=== PATIENT | female | born 1990 | race African-American/Black ===

== ENCOUNTER 2018-03-03 11:42 | Inpatient (IN) | payer MEDICAID, OTHER ==
[2018-03-03] MEDS ORDERED: Lidocaine 1% 50 ML MDV INJECT PRN (12:22)
[2018-03-03] MEDS ORDERED: Water For Irrigation,Sterile 1,000 ML Container IRR PRN (12:22)
[2018-03-03] MEDS ORDERED: Methylergonovine 0.2 MG/1 ML Amp IM PRN (12:22)
[2018-03-03] MEDS ORDERED: Sodium Chloride 0.9% 2.5 ML Syringe FLUSH PRN (12:22)
[2018-03-03] MEDS ORDERED: Tranexamic Acid 1,000 MG in Sodium Chloride 0.9% 100 ML IV PRN (12:22)
[2018-03-03] MEDS ORDERED: Carboprost Tromethamine 250 MCG/1 ML Amp IM PRN (12:22)
[2018-03-03] MEDS ORDERED: Misoprostol 200 MCG Tab PO PRN (12:22)
[2018-03-03] MEDS ORDERED: Sodium Chloride 0.9% 10 ML Syringe FLUSH PRN (12:22)
[2018-03-03] MEDS ORDERED: Lactated Ringers 1,000 ML IV SCH (12:30)
[2018-03-03] MEDS ORDERED: Oxytocin/0.9 % Sodium Chloride 30 UNIT/500 ML BAG IV SCH ×2 (12:30→12:45)
[2018-03-03] MEDS ORDERED: Terbutaline 1 MG/ML SDV SUBCUT PRN (12:33)
[2018-03-03] MEDS ORDERED: Misoprostol 25 MCG (1/4 of 100 MCG) Tab PO PRN (13:00)
[2018-03-03] MEDS ORDERED: Ampicillin 2 GM in Sodium Chloride 0.9% 100 ML IV ONE ×2 (13:00→17:30)
[2018-03-03] MEDS ORDERED: Misoprostol 25 MCG (1/4 of 100 MCG) Tab VAG PRN (13:00)
--- NOTE | 2018-03-03 15:25 | PCM.LDHP ---
L&D History of Present Illness - General Date of Service: 03/03/18 Admit Problem/Dx: Patient Status Order with Admit Dx/Problem 03/03/18 12:23 Patient Status [ADT] Routine Admission Diagnosis/Problem Admission Diagnosis/Problem - planned 03/03/18 16:48 27yo EDC 03/09/2018 39 1/7wks, A+, RI, GBS pos. IOL for term/Elective Source of Information: Patient History Limitations: Reports: No Limitations - History of Present Illness Improves with: Reports: None Worsens with: Reports: None Associated Symptoms: Reports: N - Related Data Allergies/Adverse Reactions: Allergies Allergy/AdvReac Type Severity Reaction Status Date / Time No Known Allergies Allergy Verified 03/03/18 15:38 Home Medications: Home Meds . [No Known Home Meds] 03/03/18 [History] H&P Review of Systems - Review of Systems: Review Of Systems: See Below General: Reports: No Symptoms HEENT: Reports: No Symptoms Pulmonary: Reports: No Symptoms Cardiovascular: Reports: No Symptoms Gastrointestinal: Reports: No Symptoms Genitourinary: Reports: No Symptoms Musculoskeletal: Reports: No Symptoms Skin: Reports: No Symptoms Psychiatric: Reports: No Symptoms Neurological: Reports: No Symptoms Hematologic/Lymphatic: Reports: No Symptoms Immunologic: Reports: No Symptoms L&D Exam - Exam Exam: See Below - OB Specific Contraction Intensity: Mild Movement: Active Heart Tones: Present Heart Rate (FHR) Variability: Moderate (6-25 bmp) Presentation: Vertex Estimated Weight: 3300 - Soni Score Soni Score Cervix Position: Posterior Soni Score Consistency: Medium Soni Score Effacement: 51-70% Soni Score Dilation: 1-2 cm Soni Score 's Station: -2 Soni Score Total: 5 - Exam General: Alert, Oriented, Cooperative HEENT: Hearing Intact Lungs: Clear to Auscultation, Normal Respiratory Effort Cardiovascular: Regular Rate, Regular Rhythm, Normal S1, Normal S2 GI/Abdominal Exam: Soft, Non-Tender Rectal Exam: Deferred Extremities: Normal Inspection, Normal Range of Motion, Non-Tender, No Pedal Edema, Normal Capillary Refill Skin: Warm, Dry, Intact Neurological: Cranial Nerves Intact, Reflexes Equal Bilateral, Strength Equal Bilateral, Normal Gait, Normal Speech, Normal Tone, Sensation Intact Psychiatric: Alert, Normal Affect, Normal Mood - Patient Data Lab Results Last 24 hrs: Laboratory Results - last 24 hr 03/03/18 03/03/18 Range/Units 13:33 13:33 WBC 7.20 (4.0-11.0) K/uL RBC 3.92 L (4.30-5.90) M/uL Hgb 11.2 L (12.0-16.0) g/dL Hct 32.9 L (36.0-46.0) % MCV 83.9 (80.0-98.0) fL MCH 28.6 (27.0-32.0) pg MCHC 34.0 (31.0-37.0) g/dL RDW Std Deviation 40.6 (28.0-62.0) fl RDW Coeff of Irma 14 (11.0-15.0) % Plt Count 177 (150-400) K/uL MPV 11.80 (7.40-12.00) fL Nucleated RBC % 0.0 /100WBC Nucleated RBCs # 0 K/uL Blood Type A POSITIVE Antibody Screen NEGATIVE Result Diagrams: 03/03/18 13:33 - Problem List (1) Supervision of normal IUP (intrauterine ) in primigravida SNOMED Code(s): 31301720, 931650441, 963626052, 804479532 ICD Code: Z34.00 - ENCNTR FOR SUPRVSN OF NORMAL FIRST , UNSP TRIMESTER Status: Acute Current Visit: Yes Qualifiers: Trimester: third trimester Qualified Code(s): Z34.03 - Encounter for supervision of normal first , third trimester Problem List Initiated/Reviewed/Updated: Yes Orders Last 24hrs: Active Orders 24 hr Category Date Time Status Patient Status [ADT] Routine ADT 03/03/18 12:23 Active Bedrest Bathroom Privileges [RC] ASDIRECTED Care 03/03/18 12:33 Active Communication Order [RC] ASDIRECTED Care 03/03/18 12:33 Active Communication Order [RC] ASDIRECTED Care 03/03/18 12:33 Active Communication Order [RC] ASDIRECTED Care 03/03/18 12:33 Active Heart Tones [RC] CONTINUOUS Care 03/03/18 12:23 Active Non Stress Test [RC] PER UNIT ROUTINE Care 03/03/18 12:23 Active May Shower [RC] ASDIRECTED Care 03/03/18 12:23 Active Notify Provider [RC] PRN Care 03/03/18 12:23 Active Notify Provider [RC] PRN Care 03/03/18 12:33 Active Notify Provider [RC] PRN Care 03/03/18 12:33 Active Notify Provider [RC] STAT Care 03/03/18 12:33 Active Oxygen Therapy [RC] ASDIRECTED Care 03/03/18 12:33 Active Up ad Corinne [RC] ASDIRECTED Care 03/03/18 12:23 Active Vaginal Exam [RC] PRN Care 03/03/18 12:23 Active Vaginal Exam [RC] PRN Care 03/03/18 12:33 Active Vital Signs [RC] PER UNIT ROUTINE Care 03/03/18 12:23 Active Vital Signs [RC] PER UNIT ROUTINE Care 03/03/18 12:33 Active Ampicillin 1 gm Med 03/03/18 17:00 Active Sodium Chloride 0.9% [Normal Saline] 50 ml IV Q4H Carboprost Tromethamine [Hemabate DS] Med 03/03/18 12:22 Active 250 mcg IM ASDIRECTED PRN Lactated Ringers [Ringers, Lactated] 1,000 ml Med 03/03/18 12:30 Active IV ASDIRECTED Lidocaine 1% [Xylocaine 1%] Med 03/03/18 12:22 Active 50 ml INJECT ONETIME PRN Methylergonovine [Methergine] Med 03/03/18 12:22 Active 0.2 mg IM ASDIRECTED PRN Nalbuphine [Nubain] Med 03/03/18 12:22 Active 10 mg IVPUSH Q1H PRN Oxytocin/0.9 % Sodium Chloride [Oxytocin 30 Unit/500 ML Med 03/03/18 12:30 Active -NS] 30 unit in 500 ml IV TITRATE Oxytocin/0.9 % Sodium Chloride [Oxytocin 30 Unit/500 ML Med 03/03/18 12:45 Active -NS] 30 unit in 500 ml IV TITRATE Sodium Chloride 0.9% [Saline Flush] Med 03/03/18 12:22 Active 10 ml FLUSH ASDIRECTED PRN Sodium Chloride 0.9% [Saline Flush] Med 03/03/18 12:22 Active 2.5 ml FLUSH ASDIRECTED PRN Terbutaline [Brethine] Med 03/03/18 12:33 Active 0.25 mg SUBCUT ASDIRECTED PRN Tranexamic Acid [Cyklokapron] 1,000 mg Med 03/03/18 12:22 Active Sodium Chloride 0.9% [Normal Saline] 100 ml IV ONETIME Water For Irrigation,Sterile [Sterile Water for Med 03/03/18 12:22 Active Irrigation] 1,000 ml IRR ASDIRECTED PRN miSOPROStol [Cytotec] Med 03/03/18 12:22 Active 200 mcg PO ONETIME PRN miSOPROStol [Cytotec] Med 03/03/18 13:00 Active 25 mcg PO Q4H PRN miSOPROStol [Cytotec] Med 03/03/18 13:00 Active 25 mcg VAG Q4H PRN Scalp Electrode [WOMSER] Per Unit Routine Oth 03/03/18 12:23 Ordered Medication Administration Instruction [OM.PC] Q3H Oth 03/03/18 12:45 Ordered Peripheral IV Insertion Adult [OM.PC] Routine Oth 03/03/18 12:23 Ordered Resuscitation Status Routine Resus Stat 03/03/18 12:22 Ordered Medication Orders Carboprost Tromethamine (Hemabate Ds) 250 mcg IM ASDIRECTED PRN PRN Reason: Post Hemorrhage Ampicillin Sodium 1 gm/ Sodium (Chloride) 50 mls @ 100 mls/hr IV Q4H [facility] Lactated Ringer's (Ringers, Lactated) 1,000 mls @ 150 mls/hr IV ASDIRECTED [facility]ANG Oxytocin/Sodium Chloride (Oxytocin 30 Unit/500 Ml-Ns) 30 unit in 500 mls @ 250 mls/hr IV TITRATE [facility]ANG Oxytocin/Sodium Chloride (Oxytocin 30 Unit/500 Ml-Ns) 30 unit in 500 mls @ 2 mls/hr IV TITRATE [facility]ANG; Protocol Tranexamic Acid 1,000 mg/ (Sodium Chloride) 110 mls @ 660 mls/hr IV ONETIME PRN PRN Reason: Bleeding Lidocaine HCl (Xylocaine 1%) 50 ml INJECT ONETIME PRN PRN Reason: Laceration repair Methylergonovine Maleate (Methergine) 0.2 mg IM ASDIRECTED PRN PRN Reason: Post Hemorrhage Misoprostol (Cytotec) 200 mcg PO ONETIME PRN PRN Reason: Post Hemorrhage Misoprostol (Cytotec) 25 mcg VAG Q4H PRN PRN Reason: Cervical Ripening Last Admin: 03/03/18 14:10 Dose: 25 mcg Misoprostol (Cytotec) 25 mcg PO Q4H PRN PRN Reason: Cervical Ripening Last Admin: 03/03/18 14:18 Dose: 25 mcg Nalbuphine HCl (Nubain) 10 mg IVPUSH Q1H PRN PRN Reason: Pain (severe 7-10) Sodium Chloride (Saline Flush) 10 ml FLUSH ASDIRECTED PRN PRN Reason: Keep Vein Open Sodium Chloride (Saline Flush) 2.5 ml FLUSH ASDIRECTED PRN PRN Reason: Keep Vein Open Sterile Water (Sterile Water For Irrigation) 1,000 ml IRR ASDIRECTED PRN PRN Reason: delivery Terbutaline Sulfate (Brethine) 0.25 mg SUBCUT ASDIRECTED PRN PRN Reason: Tacysystole Assessment/Plan Comment:: IOL A: 27yo EDC 03/09/2018 39 1/7wks, A+, RI, GBS pos. IOL for term/Elective P: Admit, pain medication or epidural prn, anticipate . Dr Galo updated.
[2018-03-03] MEDS ORDERED: Ampicillin 1 GM in Sodium Chloride 0.9% 50 ML IV SCH ×2 (17:00→21:30)
[2018-03-03] MEDS ORDERED: Ampicillin 2 GM AdvVial IV ONE (17:26)
[2018-03-03] MEDS ORDERED: Sodium Chloride 0.9% 100 ML ONE (17:26)
[2018-03-03] MEDS ORDERED: Acetaminophen 500 MG Tab PO ONE (17:46)
[2018-03-03] MEDS ORDERED: Acetaminophen 500 MG Tab ONE (18:05)
[2018-03-03] MEDS: Nalbuphine 10 MG/1 ML Vial IVPUSH PRN ×2 (18:50→20:19)
--- NOTE | 2018-03-03 21:38 | PCM.DEL ---
L & D Note - General Info Date of Service: 03/03/18 Mother's Due Date: 03/09/18 - Delivery Note Cervical Ripening Method: Misoprostil Delivery Method: Spontaneous Vaginal Delivery-Single Delivery Mode: Spontaneous Presentation: Vertex Nuchal Cord: Present Anesthesia Type: None Anesthetic: Lidocaine (Xylocaine) 1% Plain Local Anesthetic Volume: 1cc Amniotic Fluid Description: Clear Episiotomy Type: None Laceration: 1st Degree Suture type: Vicryl Suture size: 3-0 Placenta: Intact, Spontaneous Cord: 3 Vessels Estimated Blood Loss: 100 Resuscitation Needed: No Score 1 min: 8 Score 5 min: 9 Second Stage Interventions: Reports: Pushing, Pulls Own Legs Back Induction Criteria - Induction Gestational Age >/= 39 wks: Yes Estimated Pelvis: Reports: Adequate Reassuring Monitoring Strip: Yes Absence of Tachy Systole: Yes - General Info Date of Service: 03/03/18 Admission Dx/Problem (Free Text): Patient Status Order with Admit Dx/Problem 03/03/18 12:23 Patient Status [ADT] Routine Admission Diagnosis/Problem Admission Diagnosis/Problem - planned 03/03/18 16:48 27yo EDC 03/09/2018 39 1/7wks, A+, RI, GBS pos. IOL for term/Elective Functional Status: Reports: Pain Controlled - Review of Systems General: Reports: No Symptoms HEENT: Reports: No Symptoms Pulmonary: Reports: No Symptoms Cardiovascular: Reports: No Symptoms Gastrointestinal: Reports: No Symptoms Genitourinary: Reports: No Symptoms Musculoskeletal: Reports: No Symptoms Skin: Reports: No Symptoms Neurological: Reports: No Symptoms Psychiatric: Reports: No Symptoms - Patient Data Weight - Most Recent: 84 kg Lab Results Last 24 Hours: Laboratory Results - last 24 hr 03/03/18 03/03/18 Range/Units 13:33 13:33 WBC 7.20 (4.0-11.0) K/uL RBC 3.92 L (4.30-5.90) M/uL Hgb 11.2 L (12.0-16.0) g/dL Hct 32.9 L (36.0-46.0) % MCV 83.9 (80.0-98.0) fL MCH 28.6 (27.0-32.0) pg MCHC 34.0 (31.0-37.0) g/dL RDW Std Deviation 40.6 (28.0-62.0) fl RDW Coeff of Irma 14 (11.0-15.0) % Plt Count 177 (150-400) K/uL MPV 11.80 (7.40-12.00) fL Nucleated RBC % 0.0 /100WBC Nucleated RBCs # 0 K/uL Blood Type A POSITIVE Antibody Screen NEGATIVE Med Orders - Current: Current Medications Carboprost Tromethamine (Hemabate Ds) 250 mcg IM ASDIRECTED PRN PRN Reason: Post Hemorrhage Lactated Ringer's (Ringers, Lactated) 1,000 mls @ 150 mls/hr IV ASDIRECTED HUANG Last Admin: 03/03/18 17:33 Dose: 150 mls/hr Oxytocin/Sodium Chloride (Oxytocin 30 Unit/500 Ml-Ns) 30 unit in 500 mls @ 250 mls/hr IV TITRATE HUANG Oxytocin/Sodium Chloride (Oxytocin 30 Unit/500 Ml-Ns) 30 unit in 500 mls @ 2 mls/hr IV TITRATE [facility]ANG; Protocol Tranexamic Acid 1,000 mg/ (Sodium Chloride) 110 mls @ 660 mls/hr IV ONETIME PRN PRN Reason: Bleeding Ampicillin Sodium 1 gm/ Sodium (Chloride) 50 mls @ 100 mls/hr IV Q4H HUANG Lidocaine HCl (Xylocaine 1%) 50 ml INJECT ONETIME PRN PRN Reason: Laceration repair Methylergonovine Maleate (Methergine) 0.2 mg IM ASDIRECTED PRN PRN Reason: Post Hemorrhage Misoprostol (Cytotec) 200 mcg PO ONETIME PRN PRN Reason: Post Hemorrhage Misoprostol (Cytotec) 25 mcg VAG Q4H PRN PRN Reason: Cervical Ripening Last Admin: 03/03/18 14:10 Dose: 25 mcg Misoprostol (Cytotec) 25 mcg PO Q4H PRN PRN Reason: Cervical Ripening Last Admin: 03/03/18 14:18 Dose: 25 mcg Nalbuphine HCl (Nubain) 10 mg IVPUSH Q1H PRN PRN Reason: Pain (severe 7-10) Last Admin: 03/03/18 20:19 Dose: 10 mg Sodium Chloride (Saline Flush) 10 ml FLUSH ASDIRECTED PRN PRN Reason: Keep Vein Open Sodium Chloride (Saline Flush) 2.5 ml FLUSH ASDIRECTED PRN PRN Reason: Keep Vein Open Sterile Water (Sterile Water For Irrigation) 1,000 ml IRR ASDIRECTED PRN PRN Reason: delivery Terbutaline Sulfate (Brethine) 0.25 mg SUBCUT ASDIRECTED PRN PRN Reason: Tacysystole Discontinued Medications Acetaminophen (Tylenol Extra Strength) 1,000 mg PO ONETIME ONE Stop: 03/03/18 17:47 Last Admin: 03/03/18 18:03 Dose: 1,000 mg Acetaminophen (Tylenol Extra Strength) Confirm Administered Dose 500 mg .ROUTE .STK-MED ONE Stop: 03/03/18 18:06 Last Admin: 03/03/18 19:38 Dose: Not Given Ampicillin Sodium (Ampicillin) Confirm Administered Dose 2 gm IV .STK-MED ONE Stop: 03/03/18 17:27 Last Admin: 03/03/18 17:40 Dose: Not Given Ampicillin Sodium 1 gm/ Sodium (Chloride) 50 mls @ 100 mls/hr IV Q4H HUANG Last Admin: 03/03/18 19:57 Dose: Not Given Ampicillin Sodium 2 gm/ Sodium (Chloride) 100 mls @ 200 mls/hr IV ONETIME ONE Stop: 03/03/18 13:29 Last Admin: 03/03/18 17:34 Dose: 200 mls/hr Ampicillin Sodium 2 gm/ Sodium (Chloride) 100 mls @ 200 mls/hr IV ONETIME ONE Stop: 03/03/18 17:59 Last Admin: 03/03/18 17:40 Dose: Not Given Sodium Chloride (Normal Saline) Confirm Administered Dose 100 mls @ as directed .ROUTE .STK-MED ONE Stop: 03/03/18 17:27 Last Admin: 03/03/18 17:40 Dose: Not Given - Exam General: Alert, Oriented Lungs: Normal Respiratory Effort GI/Abdominal Exam: Soft, Non-Tender, Pelvis Stable (Female) Exam: Normal External Exam, Normal Bimanual Exam, Vaginal Bleeding Back Exam: Normal Inspection, Full Range of Motion Extremities: Normal Inspection, Normal Range of Motion, Non-Tender, No Pedal Edema, Normal Capillary Refill Skin: Warm, Dry, Intact Wound/Incisions: Healing Well Neurological: No New Focal Deficit Psy/Mental Status: Alert, Normal Affect, Normal Mood - Problem List & Annotations (1) Supervision of normal IUP (intrauterine ) in primigravida SNOMED Code(s): 70090403, 429974030, 777327945, 722872817 Code(s): Z34.00 - ENCNTR FOR SUPRVSN OF NORMAL FIRST , UNSP TRIMESTER Status: Acute Current Visit: Yes Qualifiers: Trimester: third trimester Qualified Code(s): Z34.03 - Encounter for supervision of normal first , third trimester (2) (normal spontaneous vaginal delivery) SNOMED Code(s): 78962024 Code(s): O80 - ENCOUNTER FOR FULL-TERM UNCOMPLICATED DELIVERY Status: Acute Priority: High Current Visit: Yes - Problem List Review Problem List Initiated/Reviewed/Updated: Yes - My Orders Last 24 Hours: My Active Orders 03/03/18 12:22 Carboprost Tromethamine [Hemabate DS] 250 mcg IM ASDIRECTED PRN Lidocaine 1% [Xylocaine 1%] 50 ml INJECT ONETIME PRN Methylergonovine [Methergine] 0.2 mg IM ASDIRECTED PRN Nalbuphine [Nubain] 10 mg IVPUSH Q1H PRN Sodium Chloride 0.9% [Saline Flush] 10 ml FLUSH ASDIRECTED PRN Sodium Chloride 0.9% [Saline Flush] 2.5 ml FLUSH ASDIRECTED PRN Tranexamic Acid [Cyklokapron] 1,000 mg Sodium Chloride 0.9% [Normal Saline] 100 ml IV ONETIME Water For Irrigation,Sterile [Sterile Water for Irrigation] 1,000 ml IRR ASDIRECTED PRN miSOPROStol [Cytotec] 200 mcg PO ONETIME PRN Resuscitation Status Routine 03/03/18 12:23 Patient Status [ADT] Routine Heart Tones [RC] CONTINUOUS Non Stress Test [RC] PER UNIT ROUTINE May Shower [RC] ASDIRECTED Notify Provider [RC] PRN Up ad Corinne [RC] ASDIRECTED Vaginal Exam [RC] PRN Vital Signs [RC] PER UNIT ROUTINE Scalp Electrode [WOMSER] Per Unit Routine Peripheral IV Insertion Adult [OM.PC] Routine 03/03/18 12:30 Lactated Ringers [Ringers, Lactated] 1,000 ml IV ASDIRECTED Oxytocin/0.9 % Sodium Chloride [Oxytocin 30 Unit/500 ML-NS] 30 unit in 500 ml IV TITRATE 03/03/18 12:33 Bedrest Bathroom Privileges [RC] ASDIRECTED Communication Order [RC] ASDIRECTED Communication Order [RC] ASDIRECTED Communication Order [RC] ASDIRECTED Notify Provider [RC] PRN Notify Provider [RC] PRN Notify Provider [RC] STAT Oxygen Therapy [RC] ASDIRECTED Vaginal Exam [RC] PRN Vital Signs [RC] PER UNIT ROUTINE Terbutaline [Brethine] 0.25 mg SUBCUT ASDIRECTED PRN 03/03/18 12:45 Oxytocin/0.9 % Sodium Chloride [Oxytocin 30 Unit/500 ML-NS] 30 unit in 500 ml IV TITRATE Medication Administration Instruction [OM.PC] Q3H 03/03/18 13:00 miSOPROStol [Cytotec] 25 mcg PO Q4H PRN miSOPROStol [Cytotec] 25 mcg VAG Q4H PRN 03/03/18 21:30 Ampicillin 1 gm Sodium Chloride 0.9% [Normal Saline] 50 ml IV Q4H - Plan Plan:: IOL A: 27yo EDC 03/09/2018 39 1/7wks, A+, RI, GBS pos. IOL for term/Elective P: Admit, pain medication or epidural prn, anticipate . Dr Galo updated. Delivery A: of viable female, APGARS 8/9, Wt: 6#15oz, 1st degree lac with repair, EBL 100cc, Mother and baby left in stable condition for recovery. P: Routine pp plan of care
[2018-03-03] MEDS ORDERED: oxyCODONE 5 MG Tab PO PRN (21:39)
[2018-03-03] MEDS ORDERED: Ibuprofen 400 MG Tab PO PRN (21:39)
[2018-03-03] MEDS ORDERED: Bisacodyl 10 MG Supp RECTAL PRN (21:39)
[2018-03-03] MEDS ORDERED: Lanolin 100% Cream 7 GM Tube TOP PRN (21:39)
[2018-03-03] MEDS ORDERED: Acetaminophen 500 MG Tab PO PRN ×2 (21:39)
[2018-03-03] MEDS ORDERED: Benzocaine/Menthol 20%-0.5% Spray 78 GM Cannister TOP PRN (21:39)
[2018-03-03] MEDS ORDERED: Docusate Sodium 100 MG Cap PO PRN (21:39)
[2018-03-03] MEDS ORDERED: Witch Hazel Medicated Pads 40/Jar TOP PRN (21:39)
[2018-03-03] MEDS ORDERED: Ibuprofen 800 MG Tab ONE (21:47)
[2018-03-04] MEDS: Ibuprofen 800 MG Tab PO PRN ×2 (07:00→16:05)
--- NOTE | 2018-03-04 23:35 | PCM.PNPP ---
- General Info Date of Service: 03/04/18 Admission Dx/Problem (Free Text): Patient Status Order with Admit Dx/Problem 03/03/18 12:23 Patient Status [ADT] Routine Admission Diagnosis/Problem Admission Diagnosis/Problem - planned 03/03/18 16:48 27yo EDC 03/09/2018 39 1/7wks, A+, RI, GBS pos. IOL for term/Elective Functional Status: Reports: Pain Controlled, Tolerating Diet, Ambulating, Urinating - Review of Systems General: Reports: No Symptoms HEENT: Reports: No Symptoms Pulmonary: Reports: No Symptoms Cardiovascular: Reports: No Symptoms Gastrointestinal: Reports: No Symptoms Genitourinary: Reports: No Symptoms Musculoskeletal: Reports: No Symptoms Skin: Reports: No Symptoms Neurological: Reports: No Symptoms Psychiatric: Reports: No Symptoms - General Info Date of Service: 03/04/18 - Patient Data Vital Signs - Most Recent: Last Vital Signs Temp 36.9 C 03/04/18 20:20 Pulse 71 03/04/18 20:20 Resp 16 03/04/18 20:20 BP 116/73 03/04/18 20:20 Pulse Ox 98 03/04/18 20:20 Weight - Most Recent: 84 kg Med Orders - Current: Current Medications Acetaminophen (Tylenol Extra Strength) 500 mg PO Q4H PRN PRN Reason: Pain Acetaminophen (Tylenol Extra Strength) 1,000 mg PO Q4H PRN PRN Reason: Pain Last Admin: 03/04/18 19:03 Dose: 1,000 mg Benzocaine/Menthol (Dermoplast Pain Relief 20%-0.5% [place]) 78 gm TOP ASDIRECTED PRN PRN Reason: Perineal Comfort Measure Last Admin: 03/03/18 21:57 Dose: 1 applic Bisacodyl (Dulcolax) 10 mg RECTAL ONETIME PRN PRN Reason: Constipation Docusate Sodium (Colace) 100 mg PO BID PRN PRN Reason: Constipation Emollient Ointment (Lansinoh Hpa) 0 gm TOP ASDIRECTED PRN PRN Reason: Sore Nipples Ibuprofen (Motrin) 400 mg PO Q4H PRN PRN Reason: Pain Ibuprofen (Motrin) 800 mg PO Q6H PRN PRN Reason: Pain Last Admin: 03/04/18 16:05 Dose: 800 mg Oxycodone HCl (Oxycodone) 5 mg PO Q2H PRN PRN Reason: Pain Witch Marilee (Tucks) 1 pad TOP ASDIRECTED PRN PRN Reason: comfort care Last Admin: 03/04/18 07:05 Dose: 1 applic Discontinued Medications Acetaminophen (Tylenol Extra Strength) 1,000 mg PO ONETIME ONE Stop: 03/03/18 17:47 Last Admin: 03/03/18 18:03 Dose: 1,000 mg Acetaminophen (Tylenol Extra Strength) Confirm Administered Dose 500 mg .ROUTE .STK-MED ONE Stop: 03/03/18 18:06 Last Admin: 03/03/18 19:38 Dose: Not Given Ampicillin Sodium (Ampicillin) Confirm Administered Dose 2 gm IV .STK-MED ONE Stop: 03/03/18 17:27 Last Admin: 03/03/18 17:40 Dose: Not Given Carboprost Tromethamine (Hemabate Ds) 250 mcg IM ASDIRECTED PRN PRN Reason: Post Hemorrhage Ampicillin Sodium 1 gm/ Sodium (Chloride) 50 mls @ 100 mls/hr IV Q4H [facility] Last Admin: 03/03/18 19:57 Dose: Not Given Ampicillin Sodium 2 gm/ Sodium (Chloride) 100 mls @ 200 mls/hr IV ONETIME ONE Stop: 03/03/18 13:29 Last Admin: 03/03/18 17:34 Dose: 200 mls/hr Lactated Ringer's (Ringers, Lactated) 1,000 mls @ 150 mls/hr IV ASDIRECTED [facility] Last Admin: 03/03/18 17:33 Dose: 150 mls/hr Oxytocin/Sodium Chloride (Oxytocin 30 Unit/500 Ml-Ns) 30 unit in 500 mls @ 250 mls/hr IV TITRATE [facility] Last Admin: 03/03/18 22:03 Dose: 250 mls/hr Oxytocin/Sodium Chloride (Oxytocin 30 Unit/500 Ml-Ns) 30 unit in 500 mls @ 2 mls/hr IV TITRATE [facility]; Protocol Tranexamic Acid 1,000 mg/ (Sodium Chloride) 110 mls @ 660 mls/hr IV ONETIME PRN PRN Reason: Bleeding Ampicillin Sodium 2 gm/ Sodium (Chloride) 100 mls @ 200 mls/hr IV ONETIME ONE Stop: 03/03/18 17:59 Last Admin: 03/03/18 17:40 Dose: Not Given Ampicillin Sodium 1 gm/ Sodium (Chloride) 50 mls @ 100 mls/hr IV Q4H [facility] Last Admin: 03/04/18 19:50 Dose: Not Given Sodium Chloride (Normal Saline) Confirm Administered Dose 100 mls @ as directed .ROUTE .STK-MED ONE Stop: 03/03/18 17:27 Last Admin: 03/03/18 17:40 Dose: Not Given Ibuprofen (Motrin) Confirm Administered Dose 800 mg .ROUTE .STK-MED ONE Stop: 03/03/18 21:48 Last Admin: 03/03/18 21:56 Dose: 800 mg Lidocaine HCl (Xylocaine 1%) 50 ml INJECT ONETIME PRN PRN Reason: Laceration repair Last Admin: 03/03/18 22:01 Dose: 50 ml Methylergonovine Maleate (Methergine) 0.2 mg IM ASDIRECTED PRN PRN Reason: Post Hemorrhage Misoprostol (Cytotec) 200 mcg PO ONETIME PRN PRN Reason: Post Hemorrhage Misoprostol (Cytotec) 25 mcg VAG Q4H PRN PRN Reason: Cervical Ripening Last Admin: 03/03/18 14:10 Dose: 25 mcg Misoprostol (Cytotec) 25 mcg PO Q4H PRN PRN Reason: Cervical Ripening Last Admin: 03/03/18 14:18 Dose: 25 mcg Nalbuphine HCl (Nubain) 10 mg IVPUSH Q1H PRN PRN Reason: Pain (severe 7-10) Last Admin: 03/03/18 20:19 Dose: 10 mg Sodium Chloride (Saline Flush) 10 ml FLUSH ASDIRECTED PRN PRN Reason: Keep Vein Open Sodium Chloride (Saline Flush) 2.5 ml FLUSH ASDIRECTED PRN PRN Reason: Keep Vein Open Sterile Water (Sterile Water For Irrigation) 1,000 ml IRR ASDIRECTED PRN PRN Reason: delivery Terbutaline Sulfate (Brethine) 0.25 mg SUBCUT ASDIRECTED PRN PRN Reason: Tacysystole - Interaction Disposition, : [place] at Bedside Interaction: Holding Feeding: Breastfed ; Nursed Well Support Person: - Recovery Exam Fundal Tone: Firm Fundal Level: 1 Fingerbreadths Below Umbilicus Fundal Placement: Midline Lochia Amount: Scant Lochia Color: Rubra/Red Perineum Description: Other (see below) Other Perinuem Description: 1st degree laceration Episiotomy/Laceration: Approximated Bladder Status: Voiding - Exam General: Alert Lungs: Clear to Auscultation, Normal Respiratory Effort Cardiovascular: Regular Rate, Regular Rhythm, No Murmurs GI/Abdominal Exam: Soft, Non-Tender Extremities: Normal Inspection, Normal Range of Motion, Non-Tender, No Pedal Edema, Normal Capillary Refill Skin: Warm, Dry, Intact Wound/Incisions: Healing Well Neurological: No New Focal Deficit, Normal Speech, Normal Tone, Strength Equal Bilateral Psy/Mental Status: Alert, Normal Affect, Normal Mood - Problem List & Annotations (1) Supervision of normal IUP (intrauterine ) in primigravida SNOMED Code(s): 09298303, 698359177, 452780318, 943293584 Code(s): Z34.00 - ENCNTR FOR SUPRVSN OF NORMAL FIRST , UNSP TRIMESTER Status: Acute Current Visit: Yes Qualifiers: Trimester: third trimester Qualified Code(s): Z34.03 - Encounter for supervision of normal first , third trimester (2) (normal spontaneous vaginal delivery) SNOMED Code(s): 29298380 Code(s): O80 - ENCOUNTER FOR FULL-TERM UNCOMPLICATED DELIVERY Status: Acute Priority: High Current Visit: Yes - Problem List Review Problem List Initiated/Reviewed/Updated: Yes - My Orders Last 24 Hours: My Active Orders 03/04/18 23:11 Code Status [Resuscitation Status] Routine 03/04/18 Breakfast Regular Diet [DIET] - Plan Plan:: IOL A: 27yo EDC 03/09/2018 39 1/7wks, A+, RI, GBS pos. IOL for term/Elective P: Admit, pain medication or epidural prn, anticipate . Dr Galo updated. Delivery A: of viable female, APGARS 8/9, Wt: 6#15oz, 1st degree lac with repair, EBL 100cc, Mother and baby left in stable condition for recovery. P: Routine pp plan of care PPD#1 A: VSS, AF, lochia small, denies stong pain, breast feeding well. Stable P: continue pp plan of care
[2018-03-05] MEDS: Ibuprofen 800 MG Tab PO PRN ×2 (01:29→11:27)
--- NOTE | 2018-03-05 08:24 | PCM.DCSUM1 ---
Discharge Summary - Hospital Course Free Text/Narrative:: Discharge home with infant, follow up in 6 weeks or sooner if needed. Diagnosis: Stroke: No - Discharge Data Discharge Date: 03/05/18 Discharge Disposition: Home, Self-Care 01 Condition: Good - Discharge Diagnosis/Problem(s) (1) Supervision of normal IUP (intrauterine ) in primigravida SNOMED Code(s): 26588521, 186328276, [id number], 622014700 ICD Code: Z34.00 - ENCNTR FOR SUPRVSN OF NORMAL FIRST , UNSP TRIMESTER Status: Acute Current Visit: Yes Qualifiers: Trimester: third trimester Qualified Code(s): Z34.03 - Encounter for supervision of normal first , third trimester (2) (normal spontaneous vaginal delivery) SNOMED Code(s): 12054194 ICD Code: O80 - ENCOUNTER FOR FULL-TERM UNCOMPLICATED DELIVERY Status: Acute Priority: High Current Visit: Yes - Patient Instructions Diet: Usual Diet as Tolerated Activity: As Tolerated, No Strenuous Activities, Rest and Relax Today Driving: May Drive Today Showering/Bathing: May Shower Notify Provider of: Fever, Increased Pain, Swelling and Redness, Nausea and/or Vomiting Other/Special Instructions: Discharge home with , follow up in 6 weeks or sooner if needed. - Discharge Plan *PRESCRIPTION DRUG MONITORING PROGRAM REVIEWED*: Not Applicable *COPY OF PRESCRIPTION DRUG MONITORING REPORT IN PATIENT RENATE: Not Applicable Home Medications: Home Meds . [No Known Home Meds] 03/03/18 [History] Patient Handouts: Vaginal Delivery, Care After Referrals: Amara Chacon CNM [Mid-] - - General Info Date of Service: 03/05/18 Admission Dx/Problem (Free Text: Patient Status Order with Admit Dx/Problem 03/03/18 12:23 Patient Status [ADT] Routine Admission Diagnosis/Problem Admission Diagnosis/Problem - planned 03/03/18 16:48 27yo EDC 03/09/2018 39 1/7wks, A+, RI, GBS pos. IOL for term/Elective Functional Status: Reports: Pain Controlled, Tolerating Diet, Ambulating, Urinating - Review of Systems General: Reports: No Symptoms HEENT: Reports: No Symptoms Pulmonary: Reports: No Symptoms Cardiovascular: Reports: No Symptoms Gastrointestinal: Reports: No Symptoms Genitourinary: Reports: No Symptoms Musculoskeletal: Reports: No Symptoms Skin: Reports: No Symptoms Neurological: Reports: No Symptoms Psychiatric: Reports: No Symptoms - Patient Data Vitals - Most Recent: Last Vital Signs Temp 37.2 C 03/05/18 04:00 Pulse 76 03/05/18 04:00 Resp 16 03/05/18 04:00 BP 108/58 L 03/05/18 04:00 Pulse Ox 98 03/05/18 04:00 Weight - Most Recent: 84 kg Med Orders - Current: Current Medications Acetaminophen (Tylenol Extra Strength) 500 mg PO Q4H PRN PRN Reason: Pain Acetaminophen (Tylenol Extra Strength) 1,000 mg PO Q4H PRN PRN Reason: Pain Last Admin: 03/04/18 19:03 Dose: 1,000 mg Benzocaine/Menthol (Dermoplast Pain Relief 20%-0.5% [place]) 78 gm TOP ASDIRECTED PRN PRN Reason: Perineal Comfort Measure Last Admin: 03/03/18 21:57 Dose: 1 applic Bisacodyl (Dulcolax) 10 mg RECTAL ONETIME PRN PRN Reason: Constipation Docusate Sodium (Colace) 100 mg PO BID PRN PRN Reason: Constipation Emollient Ointment (Lansinoh Hpa) 0 gm TOP ASDIRECTED PRN PRN Reason: Sore Nipples Ibuprofen (Motrin) 400 mg PO Q4H PRN PRN Reason: Pain Ibuprofen (Motrin) 800 mg PO Q6H PRN PRN Reason: Pain Last Admin: 03/05/18 01:29 Dose: 800 mg Oxycodone HCl (Oxycodone) 5 mg PO Q2H PRN PRN Reason: Pain Witch Marilee (Tucks) 1 pad TOP ASDIRECTED PRN PRN Reason: comfort care Last Admin: 03/04/18 07:05 Dose: 1 applic Discontinued Medications Acetaminophen (Tylenol Extra Strength) 1,000 mg PO ONETIME ONE Stop: 03/03/18 17:47 Last Admin: 03/03/18 18:03 Dose: 1,000 mg Acetaminophen (Tylenol Extra Strength) Confirm Administered Dose 500 mg .ROUTE .STK-MED ONE Stop: 03/03/18 18:06 Last Admin: 03/03/18 19:38 Dose: Not Given Ampicillin Sodium (Ampicillin) Confirm Administered Dose 2 gm IV .STK-MED ONE Stop: 03/03/18 17:27 Last Admin: 03/03/18 17:40 Dose: Not Given Carboprost Tromethamine (Hemabate Ds) 250 mcg IM ASDIRECTED PRN PRN Reason: Post Hemorrhage Ampicillin Sodium 1 gm/ Sodium (Chloride) 50 mls @ 100 mls/hr IV Q4H [facility] Last Admin: 03/03/18 19:57 Dose: Not Given Ampicillin Sodium 2 gm/ Sodium (Chloride) 100 mls @ 200 mls/hr IV ONETIME ONE Stop: 03/03/18 13:29 Last Admin: 03/03/18 17:34 Dose: 200 mls/hr Lactated Ringer's (Ringers, Lactated) 1,000 mls @ 150 mls/hr IV ASDIRECTED HUANG Last Admin: 03/03/18 17:33 Dose: 150 mls/hr Oxytocin/Sodium Chloride (Oxytocin 30 Unit/500 Ml-Ns) 30 unit in 500 mls @ 250 mls/hr IV TITRATE [facility] Last Admin: 03/03/18 22:03 Dose: 250 mls/hr Oxytocin/Sodium Chloride (Oxytocin 30 Unit/500 Ml-Ns) 30 unit in 500 mls @ 2 mls/hr IV TITRATE [facility]; Protocol Tranexamic Acid 1,000 mg/ (Sodium Chloride) 110 mls @ 660 mls/hr IV ONETIME PRN PRN Reason: Bleeding Ampicillin Sodium 2 gm/ Sodium (Chloride) 100 mls @ 200 mls/hr IV ONETIME ONE Stop: 03/03/18 17:59 Last Admin: 03/03/18 17:40 Dose: Not Given Ampicillin Sodium 1 gm/ Sodium (Chloride) 50 mls @ 100 mls/hr IV Q4H [facility] Last Admin: 03/04/18 19:50 Dose: Not Given Sodium Chloride (Normal Saline) Confirm Administered Dose 100 mls @ as directed .ROUTE .STK-MED ONE Stop: 03/03/18 17:27 Last Admin: 03/03/18 17:40 Dose: Not Given Ibuprofen (Motrin) Confirm Administered Dose 800 mg .ROUTE .STK-MED ONE Stop: 03/03/18 21:48 Last Admin: 03/03/18 21:56 Dose: 800 mg Lidocaine HCl (Xylocaine 1%) 50 ml INJECT ONETIME PRN PRN Reason: Laceration repair Last Admin: 03/03/18 22:01 Dose: 50 ml Methylergonovine Maleate (Methergine) 0.2 mg IM ASDIRECTED PRN PRN Reason: Post Hemorrhage Misoprostol (Cytotec) 200 mcg PO ONETIME PRN PRN Reason: Post Hemorrhage Misoprostol (Cytotec) 25 mcg VAG Q4H PRN PRN Reason: Cervical Ripening Last Admin: 03/03/18 14:10 Dose: 25 mcg Misoprostol (Cytotec) 25 mcg PO Q4H PRN PRN Reason: Cervical Ripening Last Admin: 03/03/18 14:18 Dose: 25 mcg Nalbuphine HCl (Nubain) 10 mg IVPUSH Q1H PRN PRN Reason: Pain (severe 7-10) Last Admin: 03/03/18 20:19 Dose: 10 mg Sodium Chloride (Saline Flush) 10 ml FLUSH ASDIRECTED PRN PRN Reason: Keep Vein Open Sodium Chloride (Saline Flush) 2.5 ml FLUSH ASDIRECTED PRN PRN Reason: Keep Vein Open Sterile Water (Sterile Water For Irrigation) 1,000 ml IRR ASDIRECTED PRN PRN Reason: delivery Terbutaline Sulfate (Brethine) 0.25 mg SUBCUT ASDIRECTED PRN PRN Reason: Tacysystole - Exam General: Reports: Alert, Oriented, Cooperative, No Acute Distress Lungs: Reports: Normal Respiratory Effort Cardiovascular: Reports: Regular Rate, Regular Rhythm GI/Abdominal Exam: Soft, Non-Tender (Female) Exam: Vaginal Bleeding Rectal (Female) Exam: Deferred Back Exam: Reports: Normal Inspection, Full Range of Motion Extremities: Normal Inspection, Normal Range of Motion, Non-Tender, No Pedal Edema, Normal Capillary Refill Skin: Reports: Warm, Dry, Intact Neurological: Reports: No New Focal Deficit, Normal Gait, Normal Speech, Normal Tone, Strength Equal Bilateral Psy/Mental Status: Reports: Alert, Normal Affect, Normal Mood
== END 2018-03-05 12:50 | disposition home or self-care (01) | DRG 766 ==
LOC: MW.OB 11:42 → MW.OBCHECK 11:42 → MW.OB 13:05 → OBSVTOIN 21:40 → MW.OB 03-04 00:30
PROVIDERS: ADMIT Obstetrics & Gynecology; ATTEND Obstetrics & Gynecology
PROC: 10D00Z1 Extraction of Products of Conception, Low, Open Approach (ICD-10-PCS; principal; 2018-03-03)
PROC: 3E0P7VZ Introduction of Hormone into Female Reproductive, Via Natural or Artificial Opening (ICD-10-PCS; 2018-03-03)
DX: O70.0 First degree perineal laceration during delivery (principal); Z3A.39 39 weeks gestation of pregnancy; Z37.0 Single live birth
CPT/HCPCS: 36415; 59025; 59409; 85027; 86850; 86900; 86901; A9270-GY; J0290; J2300; J2590; J7030; J7120